=== PATIENT | female | born 1975 | race American Indian/Alaskan Native ===

== ENCOUNTER 2017-09-06 19:36 | Emergency (ER) | payer OTHER ==
[2017-09-06 20:02] VITALS: BMI 39.4
[2017-09-06 20:05] VITALS: BP 156/77; PULSE 86; RESP 18; TEMP 98.6; O2SAT 99
[2017-09-06 20:51] LABS: SQUAMOUS EPITHIAL 1 /hpf (0-5); URINE BACTERIA RARE (<OCC); URINE BILIRUBIN NEGATIVE (NEGATIVE); URINE BLOOD MODERATE (NEGATIVE); URINE CLARITY SLIGHTY-CLOUDY (Clear); URINE COLOR YELLOW (YELLOW); URINE GLUCOSE (UA) NEG (Normal); URINE LEUKOCYTE ESTERASE LARGE Leu/uL (Negative); URINE PROTEIN NEGATIVE (NEGATIVE)
--- NOTE | 2017-09-06 21:07 | ED PDOC ---
HPI: Female Pain Time Seen by Provider: 09/06/17 20:06 Chief Complaint (Nursing): Female Genitourinary History Per: Patient Additional Complaint(s): Pt. states since she's had vaginal pruritus and irritation along with yellow vaginal discharge. States she recently returned from a trip from [place] (on ). Further reports that she did have unprotected vaginal intercourse on Friday and douched on as well. Reports a hx of chlamydia in the past. Denies fever, abd pain, N/V/D, back pain, flank pain. Past Medical History Reviewed: Historical Data, Nursing Documentation, Vital Signs Vital Signs: Last Vital Signs Temp 98.6 F 09/06/17 20:03 Pulse 86 09/06/17 20:03 Resp 18 09/06/17 20:03 BP 156/77 H 09/06/17 20:03 Pulse Ox 99 09/06/17 20:03 - Medical History PMH: Gastritis, HTN - Surgical History Surgical History: No Surg Hx - Family History Family History: States: Diabetes - Immunization History Hx Tetanus Toxoid Vaccination: No Hx Influenza Vaccination: No Hx Pneumococcal Vaccination: No - Home Medications Home Medications: Ambulatory Orders Medication Instructions Recorded Diltiazem HCl [Diltiazem 24Hr ER] 360 mg PO DAILY 06/26/16 Omeprazole 20 mg PO DAILY #30 capsule. 06/26/16 Water Pill 11/12/16 Fluconazole [Diflucan] 150 mg PO ONCE #1 tab 09/06/17 Nitrofurantoin Macrocrystals 100 mg PO BID #14 cap 09/06/17 [Macrobid] - Allergies Allergies/Adverse Reactions: Allergies Allergy/AdvReac Type Severity Reaction Status Date / Time IV DYE Allergy Intermediate RASH Uncoded 09/06/17 20:02 Review of Systems ROS Statement: Except As Marked, All Systems Reviewed And Found Negative Genitourinary Female: Positive for: Vaginal Discharge. Negative for: Dysuria, Frequency, Incontinence, Hematuria, Vaginal Bleeding, Pelvic Pain Physical Exam - Physical Exam Appears: Positive for: Well, Non-toxic, No Acute Distress Skin: Positive for: Normal Color, Warm, DRY Eye Exam: Positive for: Normal appearance Gastrointestinal/Abdominal: Positive for: Normal Exam, Soft. Negative for: Tenderness Pelvic Exam: Positive for: Bimanual Exam Normal, No Cerv. Motion Tender, No Masses, Discharge (yellow vaginal discharge), Other (maceration to b/l inner labias; no vesicles; Em BELCHER present as internal grinder tender during entire exam) Back: Positive for: Normal Inspection. Negative for: L CVA Tenderness, R CVA Tenderness Neurologic/Psych: Positive for: Alert, Oriented - Laboratory Results Urine POC: Negative - ECG O2 Sat by Pulse Oximetry: 99 - Progress ED Course And Treament: GC/Chlamydia cultures ordered. Disposition - Clinical Impression Clinical Impression: Urinary tract infection, Vaginitis - Patient ED Disposition Is Patient to be Admitted: No - Disposition Referrals: Melissa Méndez [Outside] Disposition: Routine/Home Disposition Time: 21:17 Condition: STABLE Additional Instructions: Follow up with PMD for further evaluation. Return to ED immediately if symptoms worsen. Prescriptions: Fluconazole [Diflucan] 150 mg PO ONCE #1 tab Nitrofurantoin Macrocrystals [Macrobid] 100 mg PO BID #14 cap Instructions: Urinary Tract Infection, Adult (DC), Vaginitis Print Language: GERMAN
== END 2017-09-06 22:07 | disposition home or self-care (01) ==
LOC: H.ER 19:36
DX: N39.0 Urinary tract infection, site not specified (principal); N76.0 Acute vaginitis; I10 Essential (primary) hypertension